=== PATIENT | female | born 1985 | race Caucasian/White ===

== ENCOUNTER → 2017-02-20 | Outpatient (CLI) | payer OTHER ==
[~2017-02-20] MED LIST: GADAVIST IV PRN
--- NOTE | 2017-02-20 11:56 | DIAGNOSTIC IMAGING REPORT ---
BRAIN COMBO FOR MS HISTORY: Multiple sclerosis G35 Multiple [id number] TECHNIQUE: Multiplanar multisequence MRI of the brain was performed both before and after the intravenous administration of contrast. COMPARISON STUDY: 03/14/2016 FINDINGS: Stable exam compared to the prior study. Diffusion-weighted images show no evidence for an acute ischemic event. Several very small subcentimeter foci of increased signal are again noted. These are unchanged in size number and or configuration compared to the prior study. No significant postcontrast enhancement. Ventricular system is midline. Structures the sella and parasellar region are unremarkable. IMPRESSION: 1. Stable exam with no change from the prior study. 2. Several small subcentimeter foci of increased signal are stable with no evidence for new interval or progressive process. 3. No abnormal postcontrast enhancement The above report was generated using voice recognition software. It may contain grammatical, syntax or spelling errors. Electronically signed by: Ryne Brothers M.D. 02/20/2017 11:54 AM Dictated Date/Time: 02/20/2017 11:46 AM
--- NOTE | 2017-02-20 14:02 | DIAGNOSTIC IMAGING REPORT ---
MRI OF THE CERVICAL SPINE WITH AND WITHOUT CONTRAST CLINICAL HISTORY: Multiple sclerosis. COMPARISON: MRI of the cervical spine October 02, 2015. TECHNIQUE: Utilizing a 1.5 Ariadne magnet and dedicated coil, multiplanar, multiecho imaging of the cervical spine was performed before and after intravenous administration of 8.5 of Gadavist. FINDINGS: Alignment of the cervical spine is anatomic. Vertebral body heights are maintained. There is no marrow replacement or marrow edema. Paravertebral soft tissues are unremarkable. There is no intracanalicular mass or fluid collection. No disc herniation is present. Central canal and neural foramen are patent. There has been interval development of a 1.6 cm T2 hyperintense focus within the cord at the mid C2 level since MRI of October 02, 2015. This reflects interval demyelination. A 1.1 cm plaque at the C3-C4 level has increased in conspicuity since prior exam. A smaller plaque at the C7 level is unchanged. No cord enhancement is identified to suggest active demyelination. IMPRESSION: Interval development of a 1.6 cm plaque within the cervical cord at the C2 level and increased conspicuity of an additional plaque at the C4 level since MRI of October 02, 2015. The findings reflect interval demyelination. No MRI evidence for active demyelination. Electronically signed by: Lionel Mendoza M.D. 02/20/2017 2:00 PM Dictated Date/Time: 02/20/2017 1:48 PM
== END | disposition home or self-care (01) ==
LOC: C.MRIBC 09:52
PROVIDERS: ATTEND Psychiatry & Neurology Neurology
DX: G35 Multiple sclerosis (principal)